=== PATIENT | male | born 1970 | race Caucasian/White ===

== ENCOUNTER 2019-09-02 19:20 | Inpatient (IN) | payer OTHER ==
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
[2019-09-02] MEDS ORDERED: DICYCLOMINE HCL 10 MG CAPSULE PO PRN (19:50)
[2019-09-02] MEDS ORDERED: MENTHOL/PHENOL 1 EACH UD MM PRN (19:50)
[2019-09-02] MEDS ORDERED: NICOTINE POLACRILEX 2 MG GUM BUC PRN (19:50)
[2019-09-02] MEDS ORDERED: BISMUTH SUBSALICYLATE 524 MG/30 ML UD PO PRN (19:50)
[2019-09-02] MEDS ORDERED: MAGNESIUM CITRATE 300 ML BOTTLE PO PRN (19:50)
[2019-09-02] MEDS ORDERED: IBUPROFEN 400 MG TABLET (FP) PO PRN (19:50)
[2019-09-02] MEDS ORDERED: MELATONIN 5 MG TABLETS PO PRN (19:50)
[2019-09-02] MEDS ORDERED: MAG HYDROX/AL HYDROX/SIMETH 30 ML UNIT-DOSE CUP PO PRN (19:50)
[2019-09-02] MEDS ORDERED: P-EPHED 60MG/TRIPROLIDI 2.5MG TABLET PO PRN (19:50)
[2019-09-02] MEDS ORDERED: guaiFENesin 200 MG/10 ML 10 ML UNIT-DOSE CUPS PO PRN (19:50)
[2019-09-02] MEDS ORDERED: METHOCARBAMOL 500 MG TABLET PO PRN (19:50)
[2019-09-02] MEDS ORDERED: ACETAMINOPHEN 325 MG TABLET (FP) PO PRN ×2 (19:50)
[2019-09-02] MEDS ORDERED: hydrOXYzine PAMOATE 25 MG CAPSULE (FP) PO PRN (19:50)
[2019-09-02] MEDS ORDERED: MAGNESIUM HYDROX 2400MG/30ML ORAL SUSPENSION 30 ML CUP PO PRN (19:50)
[2019-09-02] MEDS ORDERED: chlordiazePOXIDE HCL 10 MG CAPSULE PO PRN (19:50)
[2019-09-02] MEDS ORDERED: ONDANSETRON *ODT* 4 MG TABLET SL PRN (19:50)
[2019-09-02 20:17] VITALS: BMI 25.7
[2019-09-02] MEDS: THIAMINE HCL 100 MG TABLET (FP) PO SCH (21:20)
[2019-09-02] MEDS: chlordiazePOXIDE HCL 25 MG CAPSULE PO SCH (21:20)
[2019-09-03] MEDS: chlordiazePOXIDE HCL 25 MG CAPSULE PO SCH ×3 (06:07→22:22)
--- NOTE | 2019-09-03 09:08 | PN ---
S CIWA - CIWA Score Nausea/Vomitin-Mild Nausea/No Vomiting Muscle Tremors: 3 Anxiety: 2 Agitation: 2 Paroxysmal Sweats: 2 Orientation: 0-Oriented Tacttile Disturbances: 0-None Auditory Disturbances: 0-None Visual Disturbances: 0-None Headache: 2-Mild CIWA-Ar Total Score: 12 [facility] Progress Note (SOAP) Subjective: pt admitted yesterday for alcohol detox, without complaints O: Vital Signs - 24 hr 09/02/19 09/02/19 09/03/19 20:07 21:10 01:27 Temperature 98 F 98.6 F Pulse Rate 100 H 93 H Respiratory 18 18 20 Rate Blood Pressure 119/71 109/74 09/03/19 09/03/19 03:30 06:06 Temperature 97.7 F Pulse Rate 79 Respiratory 18 18 Rate Blood Pressure 131/78 a/p: alcohol use disorder: continue detox protocol labs pending
[2019-09-03 10:02] LABS: HEMATOCRIT 40.3 % (35.4-49); HEMOGLOBIN 13.7 GM/dL (11.7-16.9); MCH 31.4 pg (25.7-33.7); MCHC 33.9 g/dl (32.0-35.9); MEAN CELL VOLUME 92.4 fl (80-96); MEAN PLT VOLUME 8.7 fl (7.5-11.1); PLATELET COUNT 229 K/MM3 (134-434); RBC 4.36 M/mm3 (4.00-5.60); RDW 13.3 % (11.9-15.9)
[2019-09-03] MEDS: PRENATAL VITAMINS W/ FOLIC ACID TABLET (FP) PO SCH (10:26)
[2019-09-03] MEDS: NICOTINE 14 MG/24 HOURS TOPICAL PATCH TD SCH (10:26)
[2019-09-03 10:31] LABS: ALBUMIN 3.3 g/dl (3.4-5.0); BILIRUBIN,TOTAL 0.4 mg/dL (0.2-1); BLOOD UREA NITROGEN 17.7 mg/dL (7-18); CALCIUM 8.9 mg/dL (8.5-10.1); CREATININE 0.8 mg/dL (0.55-1.3); TOT PROT 6.1 g/dl (6.4-8.2)
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
--- NOTE | 2019-09-03 11:55 | EKG ---
Test Reason : Blood Pressure : / mmHG Vent. Rate : 084 BPM Atrial Rate : 084 BPM P-R Int : 168 ms QRS Dur : 082 ms QT Int : 384 ms P-R-T Axes : 046 037 030 degrees QTc Int : 453 ms NORMAL SINUS RHYTHM NORMAL ECG NO PREVIOUS ECGS AVAILABLE Confirmed by EDER QUINTANILLA MD ([id number]) on 09/03/2019 11:55:25 AM Referred By: Confirmed By:EDER QUINTANILLA MD
[2019-09-03] MEDS: MELATONIN 5 MG TABLETS PO PRN (22:22)
[2019-09-03] MEDS: THIAMINE HCL 100 MG TABLET (FP) PO SCH (22:22)
[2019-09-04] MEDS: chlordiazePOXIDE 5 MG CAPSULE PO SCH ×3 (05:58→22:15)
[2019-09-04] MEDS: PRENATAL VITAMINS W/ FOLIC ACID TABLET (FP) PO SCH (10:03)
[2019-09-04] MEDS: NICOTINE 14 MG/24 HOURS TOPICAL PATCH TD SCH (10:03)
--- NOTE | 2019-09-04 13:15 | PN ---
S CIWA - CIWA Score Nausea/Vomitin-No Nausea/No Vomiting Muscle Tremors: 1-None Visible, but B[place]te Anxiety: 1-Mildly Anxious Agitation: 0-Normal Activity Paroxysmal Sweats: 2 Orientation: 0-Oriented Tacttile Disturbances: 1-Very Mild Itch/Numbness Auditory Disturbances: 0-None Visual Disturbances: 0-None Headache: 0-None Present CIWA-Ar Total Score: 5 BHS Progress Note (SOAP) Subjective: Pt feeling bettter, interrupted sleep, sweats , Objective: 09/04/19 13:14 Vital Signs Temperature 98.3 F 09/04/19 09:07 Pulse Rate 75 09/04/19 09:07 Respiratory Rate 19 09/04/19 09:07 Blood Pressure 114/66 09/04/19 09:07 O2 Sat by Pulse Oximetry (%) Laboratory Tests 09/03/19 09/03/19 09/03/19 07:40 07:40 07:40 WBC 5.0 RBC 4.36 Hgb 13.7 Hct 40.3 MCV 92.4 MCH 31.4 MCHC 33.9 RDW 13.3 Plt Count 229 MPV 8.7 Sodium 142 Potassium 4.0 Chloride 108 H Carbon Dioxide 29 Anion Gap 5 L BUN 17.7 Creatinine 0.8 Est GFR (CKD-EPI)AfAm 122.43 Est GFR (CKD-EPI)NonAf 105.63 Random Glucose 95 Calcium 8.9 Total Bilirubin 0.4 AST 24 ALT 78 H Alkaline Phosphatase 66 Total Protein 6.1 L Albumin 3.3 L RPR Titer Nonreactive pt aox3 in nad ,, ambulting Assessment: 09/04/19 13:14 withdrawal sx's Plan: cont. detox increase fluids
[2019-09-04] MEDS: THIAMINE HCL 100 MG TABLET (FP) PO SCH (22:15)
[2019-09-05] MEDS ORDERED: chlordiazePOXIDE HCL 10 MG CAPSULE PO PRN
[2019-09-05] MEDS: MELATONIN 5 MG TABLETS PO PRN (00:43)
[2019-09-05] MEDS: chlordiazePOXIDE HCL 10 MG CAPSULE PO SCH ×3 (06:12→22:21)
[2019-09-05] MEDS: NICOTINE 14 MG/24 HOURS TOPICAL PATCH TD SCH (10:43)
[2019-09-05] MEDS: PRENATAL VITAMINS W/ FOLIC ACID TABLET (FP) PO SCH (10:43)
[2019-09-05] MEDS ORDERED: traZODone HCL 50 MG TABLET (FP) PO PRN (10:55)
--- NOTE | 2019-09-05 16:44 | PN ---
S CIWA - CIWA Score Nausea/Vomitin-No Nausea/No Vomiting Muscle Tremors: None Anxiety: 3 Agitation: 1-Slight > Activity Paroxysmal Sweats: No Perspiration Orientation: 0-Oriented Tacttile Disturbances: 0-None Auditory Disturbances: 0-None Visual Disturbances: 2-Mild Sensitivity Headache: 0-None Present CIWA-Ar Total Score: 6 BHS Progress Note (SOAP) Subjective: Insomnia, Anxious. Objective: PATIENT A & O X 3, OBSERVED AMBULATING ON DETOX UNIT UNASSISTED. IN NO ACUTE DISTRESS. 09/05/19 16:43 Vital Signs Temperature 98.1 F 09/05/19 10:33 Pulse Rate 68 09/05/19 10:33 Respiratory Rate 16 09/05/19 10:33 Blood Pressure 114/75 09/05/19 10:33 O2 Sat by Pulse Oximetry (%) Laboratory Tests 09/03/19 09/03/19 09/03/19 07:40 07:40 07:40 WBC 5.0 RBC 4.36 Hgb 13.7 Hct 40.3 MCV 92.4 MCH 31.4 MCHC 33.9 RDW 13.3 Plt Count 229 MPV 8.7 Sodium 142 Potassium 4.0 Chloride 108 H Carbon Dioxide 29 Anion Gap 5 L BUN 17.7 Creatinine 0.8 Est GFR (CKD-EPI)AfAm 122.43 Est GFR (CKD-EPI)NonAf 105.63 Random Glucose 95 Calcium 8.9 Total Bilirubin 0.4 AST 24 ALT 78 H Alkaline Phosphatase 66 Total Protein 6.1 L Albumin 3.3 L RPR Titer Nonreactive LABS NOTED. Assessment: 09/05/19 16:43 WITHDRAWAL SYMPTOMS. ELEVATED ALT LEVEL. Plan: CONTINUE DETOX. TRAZODONE, 50 MG ORAL PRN HS ORDERED FOR RELIEF OF INSOMNIA.
[2019-09-05] MEDS ORDERED: NITROGLYCERIN SUBLINGUAL 1/150 0.4 MG TAB SL ONE (21:01)
[2019-09-05 21:35] VITALS: PULSE 67; TEMP 97.9
[2019-09-05 21:36] VITALS: BP 123/85
--- NOTE | 2019-09-05 21:53 | PN ---
[facility] Progress Note Note: ASKED TO SEE PATIENT FOR C/O C.P. . CLIENT REPORTS WORSENING C.P. 10/10 FOR ABOUT THE LAST HOUR. NOW RADIATING UP HIS LEFT NECK AND ACROSS HIS JAW. GIVEN MYLANTA W/O RELIEF. REPORTS SOB, C.P., SWEATS, CHILLS, CLIENT SEEN SEATED IN CHAIR/ A/O X3 MODERATE DISTRESS HOLDING HIS CHEST, RESTLESS CLIENT WAS ABLE TO AMBULATE TO HIS ROOM UNASSISTED. EKG SHOWS LATERAL ISCHEMIA VIA ELECTRONIC INTERPRETATION VS NL EKG ON ADMISSION ON 09/02/2019. Vital Signs - 8 hr 09/05/19 09/05/19 09/05/19 16:34 20:50 21:09 Temperature 99.1 F 99.1 F 97.9 F Pulse Rate 66 59 L 65 Respiratory 18 16 18 Rate Blood Pressure 138/91 127/76 123/85 09/05/19 21:29 Temperature 97.9 F Pulse Rate 67 Respiratory 16 Rate Blood Pressure Laboratory Tests 09/03/19 09/03/19 09/03/19 07:40 07:40 07:40 WBC 5.0 RBC 4.36 Hgb 13.7 Hct 40.3 MCV 92.4 MCH 31.4 MCHC 33.9 RDW 13.3 Plt Count 229 MPV 8.7 Sodium 142 Potassium 4.0 Chloride 108 H Carbon Dioxide 29 Anion Gap 5 L BUN 17.7 Creatinine 0.8 Est GFR (CKD-EPI)AfAm 122.43 Est GFR (CKD-EPI)NonAf 105.63 Random Glucose 95 Calcium 8.9 Total Bilirubin 0.4 AST 24 ALT 78 H Alkaline Phosphatase 66 Total Protein 6.1 L Albumin 3.3 L RPR Titer Nonreactive NITRO 0.4MG PO SL X1 02 2L NC 911 INITIATED CLIENT WITH MINIMAL RELIEF WITH NITRO TRANSFERRED TO [facility]- ER REPORT GIVEN TO DR. WERNER- 49 Y.O. MALE WITH ALCOHOL DEPENDENCE ADMITTED ON 09/02/2019 FOR ALCOHOL DETOX. HE REPORTS COCAINE AND CANNABIS ABUSE WELL C/W UTOX. C/O C.P FOR APPROX 1 HOUR PRIOR TO THIS PROVIDER EVALUATING CLIENT FOR UNRELIEVED SX'S AFTER MYLANTA. NOW WITH ABN EKG AND UNRELIEVED C.P. AFTER NITRO. PMHX OA, GERD. TRANSFERRED TO [facility] FOR EVAL
[2019-09-05] MEDS: THIAMINE HCL 100 MG TABLET (FP) PO SCH (22:21)
[2019-09-06] MEDS ORDERED: chlordiazePOXIDE HCL 10 MG CAPSULE PO ONE (05:00)
== END 2019-09-06 05:17 | disposition short-term general hospital (02) | DRG 774 ==
LOC: YASAS 19:20 → Y6N 20:27
PROVIDERS: ADMIT Allergy & Immunology; ATTEND Allergy & Immunology
PROC: HZ2ZZZZ Detoxification Services for Substance Abuse Treatment (ICD-10-PCS; principal; 2019-09-02)
DX: F10.230 Alcohol dependence with withdrawal, uncomplicated (principal); F14.20 Cocaine dependence, uncomplicated; F12.20 Cannabis dependence, uncomplicated; F17.210 Nicotine dependence, cigarettes, uncomplicated; F19.282 Other psychoactive substance dependence with psychoactive substance-induced sleep disorder; R07.9 Chest pain, unspecified; M79.602 Pain in left arm; Z59.0 Homelessness
CPT/HCPCS: 36415; 80053; 85027; 86593; 93005; 93010

== ENCOUNTER 2019-09-05 21:39 | Observation (INO) | payer OTHER ==
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
[2019-09-05] MEDS ORDERED: NITROGLYCERIN SUBLINGUAL 1/150 0.4 MG TAB SL ONE (22:17)
[2019-09-05] MEDS ORDERED: ACETAMINOPHEN 1000 MG/100 ML VIAL (NON FORMULARY) IVPB ONE (22:18)
[2019-09-05] MEDS ORDERED: SODIUM CHLORIDE 0.9% 500 ML INFUS.BAG IV ONE (22:18)
[2019-09-05] MEDS ORDERED: ACETAMINOPHEN INJECTION 100 ML IVPB ONE (22:22)
[2019-09-05 22:29] LABS: BASO % 0.5 % (0-2.0); EOS % 0.8 % (0-4.5); HEMATOCRIT 41.8 % (35.4-49); HEMOGLOBIN 14.1 GM/dL (11.7-16.9); LYMPH % 17.2 % (8-40); MCH 31.2 pg (25.7-33.7); MCHC 33.8 g/dl (32.0-35.9); MEAN CELL VOLUME 92.3 fl (80-96); MEAN PLT VOLUME 8.4 fl (7.5-11.1); MONO % 6.4 % (3.8-10.2); NEUT % 75.1 % (42.8-82.8); PLATELET COUNT 257 K/MM3 (134-434); RBC 4.53 M/mm3 (4.00-5.60); WHITE BLOOD COUNT 11.6 K/mm3 (4.0-10.0)
[2019-09-05 22:58] LABS: ALBUMIN 3.5 g/dl (3.4-5.0); ALK PHOS 70 U/L (45-117); ANION GAP 4 MMOL/L (8-16); BILIRUBIN,TOTAL 0.2 mg/dL (0.2-1); BLOOD UREA NITROGEN 15.5 mg/dL (7-18); CALCIUM 8.6 mg/dL (8.5-10.1); CHLORIDE 105 mmol/L (98-107); CO2 32 mmol/L (21-32); GLUCOSE,RANDOM 116 mg/dL (74-106); POTASSIUM 3.7 mmol/L (3.5-5.1); SGOT/AST 21 U/L (15-37); SGPT/ALT 65 U/L (13-61); SODIUM 140 mmol/L (136-145); TOT PROT 6.8 g/dl (6.4-8.2)
[2019-09-05] MEDS ORDERED: morphine CARPU-JECT 2 MG/1 ML DISP.SYRIN IVPUSH ONE (23:01)
--- NOTE | 2019-09-05 23:26 | PDOC ---
Documentation entered by Mali Sequeira SCRIBE, acting as scribe for Kristi Brunner DO. Kristi Brunner DO: This documentation has been prepared by the Fabby bravo Xhesika, SCRIBE, under my direction and personally reviewed by me in its entirety. I confirm that the documentation accurately reflects all work, treatment, procedures, and medical decision making performed by me. Attending Attestation - Resident Resident Name: Kit Jones - ED Attending Attestation I have performed the following: I have examined & evaluated the patient, The case was reviewed & discussed with the resident, I agree w/resident's findings & plan - HPI HPI: 09/05/19 22:19 The patient is a 49 year old male with a PMH of polysubstance and alcohol abuse (last used Saturday) who presents to the emergency department [facility] for L sided chest pain described as a squeezing sensation radiating to his neck. The patient denies shortness of breath, headache and dizziness. Denies fever, chills, cough, nausea, vomiting, diarrhea and constipation. Allergies: NKDA - Physicial Exam PE: 09/05/19 22:19 Agree with resident exam. - Medical Decision Making 09/05/19 23:25 49-year-old male sent from rehab for polysubstance abuse now with left-sided and central chest pressure Patient had partial relief with nitroglycerin and IV Tylenol We will add morphine, due to pleuritic component we will CTA to rule out PE as well Pending results will admit for further evaluation and serial troponins
[2019-09-06] MEDS ORDERED: MORPHINE SULFATE 2 MG/ML VIAL ONE (00:04)
--- NOTE | 2019-09-06 01:32 | PN ---
Teaching Attending Note Name of Resident: Autumn Dominguez ATTENDING PHYSICIAN STATEMENT I saw and evaluated the patient. I reviewed the resident's note and discussed the case with the resident. I agree with the resident's findings and plan as documented. SUBJECTIVE: Patient is a 49 year old man with a PMH of Tobacco use and Substance use disorder (alcohol, cocaine, marijuana, last use this past Saturday), presenting today with left sided chest pain that started at rest. Reports that he was talking with his when the chest pain started. Never had an AR or chest pain before. Reports that the chest pain is worse with exertion and improved with nitroglycerin. Describes the pain as squeezing and throbbing like in quality. Reports that the pain radiates up the left side of his neck. No radiation to the back or down his arm. States that the pain has improved since calling EMS and currently resting comfortably in bed. No sick contacts or recent travels. OBJECTIVE: Alert Vital Signs Period Temp Pulse Resp BP Sys/Springer Pulse Ox Last 24 Hr 98.1 F 65 18 112-123/76-88 98 HEENT: No Jaundice, eye redness or discharge, PERRLA, EOMI. Normocephalic, atraumatic. External ears are normal and hearing is grossly intact. No nasal discharge. Neck: Supple, nontender. No palpable adenopathy or thyromegaly. No JVD Chest: Good effort. Clear to auscultation and percussion. Heart: Regular. No S3, rub or murmur Abdomen: Not distended, soft, nontender and no HSM. No rebound or guarding. Normal bowel sounds. Ext: Peripheral pulses intact. No leg edema. Skin: Warm and dry. No petechiae, rash or ecchymosis. Neuro: Alert. Oriented x3. CN 2-12 grossly intact. Sensation grossly intact in all four extremities and DTR are symmetric. Psych: Appropriate mood and affect. Good insight. Home Medications Medication Instructions Recorded Celecoxib [Celebrex -] 200 mg PO DAILY 09/02/19 Abnormal Lab Results 09/05/19 09/05/19 22:15 22:15 WBC 11.6 H Absolute Neuts (auto) 8.7 H Anion Gap 4 L Random Glucose 116 H ALT 65 H ASSESSMENT AND PLAN: 1. Chest pain - Has risk factor of cocaine use for ACS. EKG shows sinus bradycardia at 58/minute and no significant ST-T wave changes. Initial troponin is negative. No acute abnormality on CXR and no PE or dissection on chest CTA. Will admit to telemetry to rule out ACS, get ECHO, fasting lipids and consult Cardiology. Get urinalysis. Will continue comprehensive care for all of patient s comorbid conditions. 2. Tobacco Use Counseled on risks associated with tobacco use. We will provide patient all the necessary assistance to facilitate smoking cessation and prescribe Nicotine patch. 3. Polysubstance/Alcohol abuse - Monitor cloely for drug withdrawal. Implement [facility] alcohol withdrawal protocol and do neurochecks. Implement seizure, fall and aspiration precautions. Treat with IV Banana bag, thiamine and folic acid. Monitor and replete electrolytes (Ca,Mg,K,P). Counseled patient about abstaining from alcohol. Will consult communicable disease specialist and refer to alcohol detox upon discharge. 4. Hypertension - Restart suitable outpatient antihypertensive drugs when clinically appropriate. Revise regimen to ensure [id number] excellent BP control and director of counseling patient on the injurious effects of uncontrolled hypertension. Nonpharmacologic measures to control hypertension like weight loss , salt restriction and exercise discussed. Importance of adherence to treatment regimen and attainment of normotension emphasized. 5. DVT prophylaxis - Lovenox 40 mg SQ q 24 hours. 6. Advance directives - Full code
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
[2019-09-06] MEDS ORDERED: FOLIC ACID INJECTION - 1 MG, THIAMINE HCL 100 MG, MULTIVIT INJECTION ADULT 10 ML in SOD... IVPB ONE (03:00)
[2019-09-06 06:55] LABS: BASO % 0.5 % (0-2.0); EOS % 0.5 % (0-4.5); HEMATOCRIT 38.1 % (35.4-49); HEMOGLOBIN 13.1 GM/dL (11.7-16.9); LYMPH % 27.1 % (8-40); MCH 31.6 pg (25.7-33.7); MCHC 34.4 g/dl (32.0-35.9); MEAN CELL VOLUME 91.7 fl (80-96); MEAN PLT VOLUME 8.7 fl (7.5-11.1); MONO % 11.1 % (3.8-10.2); NEUT % 60.8 % (42.8-82.8); PLATELET COUNT 237 K/MM3 (134-434); RBC 4.16 M/mm3 (4.00-5.60)
[2019-09-06 07:49] LABS: ALBUMIN 3.2 g/dl (3.4-5.0); ALK PHOS 66 U/L (45-117); ANION GAP 5 MMOL/L (8-16); BILIRUBIN,TOTAL 0.3 mg/dL (0.2-1); BLOOD UREA NITROGEN 11.5 mg/dL (7-18); CALCIUM 8.5 mg/dL (8.5-10.1); CHLORIDE 106 mmol/L (98-107); CHOLESTEROL 194 mg/dL (50-200); CO2 29 mmol/L (21-32); CREATININE 0.7 mg/dL (0.55-1.3); GLUCOSE,RANDOM 96 mg/dL (74-106); HDL CHOLESTEROL 60 mg/dL (40-60); LDL CHOLESTEROL (ONLY SJRH) 112 mg/dL (5-100); MAGNESIUM 2.2 mg/dL (1.8-2.4); PHOSPHOROUS 3.4 mg/dL (2.5-4.9); POTASSIUM 4.2 mmol/L (3.5-5.1); SGOT/AST 16 U/L (15-37); SGPT/ALT 53 U/L (13-61); SODIUM 140 mmol/L (136-145); TRIGLYCERIDES 97 mg/dL (0-150)
[2019-09-06] MEDS ORDERED: PT OWN MED DRAWER 7, Y5N ONE (10:00)
[2019-09-06] MEDS: ENOXAPARIN NA (PORCINE) 40 MG/0.4 ML DISP.SYRIN SQ SCH (10:22)
[2019-09-06] MEDS: THIAMINE HCL 100 MG TABLET (FP) PO SCH (10:22)
[2019-09-06] MEDS: FOLIC ACID 1 MG TABLET (FP) PO SCH (10:22)
[2019-09-06] MEDS: ASPIRIN 81 MG CHEWABLE TABLETS PO SCH (10:22)
[2019-09-06 16:34] VITALS: BMI 27.1
--- NOTE | 2019-09-06 16:39 | PN ---
Progress Note (short form) - Note Progress Note: SUBJECTIVE: Reports anterior chest pain without cough/sputum/hemoptysis. No fever/chills. OBJECTIVE: Afebrile, Hemodynamically Stable. Last Vital Signs Temp Pulse Resp BP Pulse Ox 98.3 F 79 18 133/90 96 09/06/19 03:20 09/06/19 14:00 09/06/19 14:00 09/06/19 14:00 09/06/19 14:00 HEENT - Atraumatic, Normocephalic. Heart - S1, S2, RRR Lungs - clear to auscultation Abdomen - soft, non-tender. Bowel Sounds normal. Extremities - no edema, no calf tenderness. Neuro - AAO x 3. Tone/Power normal all extremities. Laboratory Results - last 24 hr 09/05/19 09/05/19 09/06/19 22:15 22:15 05:45 WBC 11.6 H 8.0 RBC 4.53 4.16 Hgb 14.1 13.1 Hct 41.8 38.1 MCV 92.3 91.7 MCH 31.2 31.6 MCHC 33.8 34.4 RDW 13.0 13.0 Plt Count 257 237 MPV 8.4 8.7 Absolute Neuts (auto) 8.7 H 4.9 Neutrophils % 75.1 60.8 Lymphocytes % 17.2 27.1 D Monocytes % 6.4 11.1 H Eosinophils % 0.8 0.5 Basophils % 0.5 0.5 Nucleated RBC % 0 0 Sodium 140 Potassium 3.7 Chloride 105 Carbon Dioxide 32 Anion Gap 4 L BUN 15.5 Creatinine 1.0 Est GFR (CKD-EPI)AfAm 102.69 Est GFR (CKD-EPI)NonAf 88.61 Random Glucose 116 H Calcium 8.6 Phosphorus Magnesium Total Bilirubin 0.2 AST 21 ALT 65 H Alkaline Phosphatase 70 Creatine Kinase 59 Troponin I < 0.02 Total Protein 6.8 Albumin 3.5 Triglycerides Cholesterol Total LDL Cholesterol HDL Cholesterol 09/06/19 05:45 WBC RBC Hgb Hct MCV MCH MCHC RDW Plt Count MPV Absolute Neuts (auto) Neutrophils % Lymphocytes % Monocytes % Eosinophils % Basophils % Nucleated RBC % Sodium 140 Potassium 4.2 Chloride 106 Carbon Dioxide 29 Anion Gap 5 L BUN 11.5 Creatinine 0.7 Est GFR (CKD-EPI)AfAm 129.34 Est GFR (CKD-EPI)NonAf 111.59 Random Glucose 96 Calcium 8.5 Phosphorus 3.4 Magnesium 2.2 Total Bilirubin 0.3 AST 16 ALT 53 Alkaline Phosphatase 66 Creatine Kinase Troponin I < 0.02 Total Protein 6.0 L Albumin 3.2 L Triglycerides 97 Cholesterol 194 Total LDL Cholesterol 112 H HDL Cholesterol 60 Current Medications Generic Name Dose Route Start Last Admin Trade Name Freq PRN Reason Stop Dose Admin Aspirin 81 mg 09/06/19 10:00 09/06/19 10:22 Asa - PO 81 mg DAILY ZARA Administration Enoxaparin Sodium 40 mg 09/06/19 10:00 09/06/19 10:22 Lovenox - SQ 40 mg DAILY ZARA Administration Folic Acid 1 mg 09/06/19 10:00 09/06/19 10:22 Folic Acid - PO 1 mg DAILY ZARA Administration Thiamine HCl 100 mg 09/06/19 10:00 09/06/19 10:22 Vitamin B1 - PO 100 mg DAILY ZARA Administration Home Medications Medication Instructions Recorded Celecoxib [Celebrex -] 200 mg PO DAILY 09/02/19 Alprazolam [Xanax] 2 mg PO DAILY 09/06/19 Hydrocodone/Acetaminophen [Vicodin 1 each PO PRN 09/06/19 Es 7.5-300 mg Tablet] Zolpidem Tartrate [Ambien] 5 mg PO PRN 09/06/19 ASSESSMENT/PLAN: 49 year old male with history of Polysubstance Abuse (cocaine/alcohol/MJ), active smoker, presents to the ED with complaints of substernal anterior chest pain, radiates to L neck/jaw, worse on positional changes, not related to exertion. Pain developed while he was at [facility] for alcohol detox which he completed. Last cocaine use 4 days ago. CTA Chest - no PE, moderate hiatal hernia 1. Atypical Chest Pain ?cocaine related vasospasm ?underlying CAD TropI neg x 2. ECG - Sinus Cornelio, no acute changes. Echo and Stress test ordered. Cardiology consulted. 2. Polysubstance Abuse (Cocaine/MJ/Alcohol) No evidence of withdrawals MVI, Thiamine, Folic Acid. DVT Px - Lovenox SQ Visit type - Emergency Visit Emergency Visit: Yes ED Registration Date: 09/06/19 Care time: The patient presented to the Emergency Department on the above date and was hospitalized for further evaluation of their emergent condition. - New Patient This patient is new to me today: Yes Date on this admission: 09/06/19 - Critical Care Critical Care patient: No - Discharge Referral Referred to [facility] No
[2019-09-06] MEDS: MULTIVITAMINS (DAILY MVI) TABLET (FP) PO SCH (17:03)
[2019-09-06] MEDS ORDERED: ACETAMINOPHEN 325 MG TABLET (FP) PO PRN (17:05)
[2019-09-06] MEDS: ACETAMINOPHEN 325 MG TABLET (FP) PO PRN (18:38)
[2019-09-06 20:01] LABS: COCAINE, UR NEGATIVE ng/ml (CUTOFF=300); METHADONE, UR NEGATIVE ng/ml (CUTOFF=300); OPIATES, URI NEGATIVE ng/ml (CUTOFF=300); PHENCYCLIDINE,URINE NEGATIVE ng/ml (CUTOFF=25); URINE AMPHETAMINES NEGATIVE ng/ml (CUTOFF=500); URINE BARBITURATES NEGATIVE ng/ml (CUTOFF=200)
[2019-09-06 20:03] LABS: URINE BENZODIAZEPINES POSITIVE ng/ml (CUTOFF=200)
[2019-09-07] MEDS: ACETAMINOPHEN 325 MG TABLET (FP) PO PRN (00:20)
--- NOTE | 2019-09-07 09:31 | EKG ---
Test Reason : Blood Pressure : / mmHG Vent. Rate : 058 BPM Atrial Rate : 058 BPM P-R Int : 162 ms QRS Dur : 080 ms QT Int : 424 ms P-R-T Axes : 022 013 034 degrees QTc Int : 416 ms SINUS BRADYCARDIA POSSIBLE LEFT ATRIAL ENLARGEMENT LEFT VENTRICULAR HYPERTROPHY CANNOT RULE OUT SEPTAL INFARCT , AGE UNDETERMINED ABNORMAL ECG WHEN COMPARED WITH ECG OF 02-SEP-2019 20:36, MINIMAL CRITERIA FOR SEPTAL INFARCT ARE NOW PRESENT Confirmed by Pablo Quinn ([id number]) on 09/07/2019 9:30:56 AM Referred By: Confirmed By:Pablo Quinn
--- NOTE | 2019-09-07 10:48 | ECHO ---
Name: RODRIGO ARAMBULA Exam:Adult Echocardiogram Study Date: 09/07/2019 09:55 AM Age: 49 yrs Reason For Study: Chest Pain Height: 74 in Weight: 210 lb BSA: 2.2 m2 MMode/2D Measurements & Calculations IVSd: 1.2 cm Ao root diam: 3.4 cm LVIDd: 4.3 cm LA dimension: 3.6 cm LVIDs: 3.0 cm ACS: 2.4 cm LVPWd: 1.2 cm IVSs: 1.4 cm LVPWs: 1.5 cm EDV(Teich): 84.9 ml ESV(Teich): 36.4 ml LVOT diam: 2.2 cm RV S Leonides: 15.7 cm/sec Doppler Measurements & Calculations MV E max leonides: 71.6 cm/sec Ao V2 max: 102.0 cm/sec MV A max leonides: 56.8 cm/sec Ao max P.2 mmHg MV E/A: 1.3 Ao V2 mean: 77.7 cm/sec MV dec time: 0.24 sec Ao mean P.7 mmHg Ao V2 VTI: 21.1 cm FERN(I,D): 3.1 cm2 FERN(V,D): 3.2 cm2 LV V1 max P.1 mmHg MR max leonides: 106.9 cm/sec LV V1 mean P.6 mmHg MR max P.6 mmHg LV V1 max: 87.9 cm/sec LV V1 mean: 55.6 cm/sec LV V1 VTI: 17.6 cm SV(LVOT): 65.8 ml TR max leonides: 184.6 cm/sec TR max P.9 mmHg PA V2 max: 75.0 cm/sec Med Peak E' Leonides: 8.1 cm/sec PA max P.3 mmHg Med E/e': 8.8 Lat Peak E' Leonides: 10.7 cm/sec Lat E/e': 6.7 Procedure Study Quality: Fair. Left Ventricle The left ventricle is normal in size. There is mild concentric left ventricular hypertrophy. The left ventricular ejection fraction is normal. Ejection Fraction = 60-65%. Left Ventricular Filling pattern is normal for age. Right Ventricle The right ventricle is normal size. The right ventricular systolic function is normal. Atria Normal left and right atrial size and function. Mitral Valve The mitral valve is grossly normal. There is no mitral regurgitation noted. Tricuspid Valve The tricuspid valve is not well visualized, but is grossly normal. No tricuspid regurgitation. Aortic Valve The aortic valve is trileaflet. No hemodynamically significant valvular aortic stenosis. No aortic regurgitation is present. Pulmonic Valve The pulmonic valve is not well seen, but is grossly normal. Great Vessels Mild aortic root dilatation. Mildly dilated ascending aorta. Pericardium/Pleura There is no pericardial effusion. Interpretation Summary LV: Shyanne size,mild LVH, nornal function, EF: 55-60% RV: Normal No significant valvular dysfunction Mildly dilated aortic root 4.2 cm and ascending aorta 4.1 cm. Pablo Quinn 09/07/2019 10:48 AM
--- NOTE | 2019-09-07 10:50 | EKG ---
Test Reason : Blood Pressure : / mmHG Vent. Rate : 075 BPM Atrial Rate : 075 BPM P-R Int : 160 ms QRS Dur : 084 ms QT Int : 390 ms P-R-T Axes : 033 035 025 degrees QTc Int : 435 ms NORMAL SINUS RHYTHM NORMAL ECG WHEN COMPARED WITH ECG OF 05-SEP-2019 21:49, MINIMAL CRITERIA FOR SEPTAL INFARCT ARE NO LONGER PRESENT Confirmed by Pablo Quinn ([id number]) on 09/07/2019 10:50:04 AM Referred By: HOLLY COOK DR Confirmed By:Pablo Quinn
[2019-09-07] MEDS: MULTIVITAMINS (DAILY MVI) TABLET (FP) PO SCH (12:22)
[2019-09-07] MEDS: ASPIRIN 81 MG CHEWABLE TABLETS PO SCH (12:22)
[2019-09-07] MEDS: FOLIC ACID 1 MG TABLET (FP) PO SCH (12:22)
[2019-09-07] MEDS: THIAMINE HCL 100 MG TABLET (FP) PO SCH (12:22)
[2019-09-07] MEDS: ENOXAPARIN NA (PORCINE) 40 MG/0.4 ML DISP.SYRIN SQ SCH (12:25)
--- NOTE | 2019-09-07 13:54 | PN ---
Teaching Attending Note Name of Resident: Lucas Skinner ATTENDING PHYSICIAN STATEMENT I saw and evaluated the patient. I reviewed the resident's note and discussed the case with the resident. I agree with the resident's findings and plan as documented. SUBJECTIVE: Some residual anterior chest pain without cough/sputum/hemoptysis. No fever/chills. OBJECTIVE: Afebrile, Hemodynamically Stable. Last Vital Signs Temp Pulse Resp BP Pulse Ox 98.2 F 77 20 133/80 97 09/07/19 05:00 09/07/19 05:00 09/07/19 05:00 09/07/19 05:00 09/06/19 22:25 Heart - S1, S2, RRR Lungs - clear to auscultation Abdomen - soft, non-tender. Bowel Sounds normal. Extremities - no edema, no calf tenderness. Neuro - AAO x 3. Tone/Power normal all extremities. Laboratory Results - last 24 hr 09/06/19 09/06/19 08:23 17:51 Creatine Kinase 38 Troponin I < 0.02 Opiates Screen Negative Methadone Screen Negative Barbiturate Screen Negative Phencyclidine Screen Negative Ur Amphetamines Screen Negative MDMA (Ecstasy) Screen Negative Benzodiazepines Screen Positive A* Cocaine Screen Negative U Marijuana (THC) Screen Positive A* Current Medications Generic Name Dose Route Start Last Admin Trade Name Freq PRN Reason Stop Dose Admin Acetaminophen 650 mg 09/06/19 18:29 09/07/19 00:20 Tylenol - PO 650 mg Q6H PRN Administration PAIN LEVEL 1-5 Aspirin 81 mg 09/06/19 10:00 09/07/19 12:22 Asa - PO 81 mg DAILY ZARA Administration Enoxaparin Sodium 40 mg 09/06/19 10:09/07/19 12:25 Lovenox - SQ Not Given DAILY ZARA Folic Acid 1 mg 09/06/19 10:00 09/07/19 12:22 Folic Acid - PO 1 mg DAILY ZARA Administration Multivitamins/Minerals/Vitamin C 1 tab 09/06/19 16:45 09/07/19 12:22 Tab-A-Vit - PO 1 tab DAILY ZARA Administration Thiamine HCl 100 mg 09/06/19 10:00 09/07/19 12:22 Vitamin B1 - PO 100 mg DAILY ZARA Administration Home Medications Medication Instructions Recorded Celecoxib [Celebrex -] 200 mg PO DAILY 09/02/19 Alprazolam [Xanax] 2 mg PO DAILY 09/06/19 Hydrocodone/Acetaminophen [Vicodin 1 each PO PRN 09/06/19 Es 7.5-300 mg Tablet] Zolpidem Tartrate [Ambien] 5 mg PO PRN 09/06/19 ASSESSMENT/PLAN: 49 year old male with history of Polysubstance Abuse (cocaine/alcohol/MJ), active smoker, presents to the ED with complaints of substernal anterior chest pain, radiates to L neck/jaw, worse on positional changes, not related to exertion. Pain developed while he was at [facility] for alcohol detox which he completed. Last cocaine use 4 days ago. CTA Chest - no PE, moderate hiatal hernia 1. Atypical Chest Pain, likely musculoskeletal TropI neg x 3. ECG - Sinus Cornelio, no acute changes. Echo - normal LV function, dilated aortic root 4.2cm and ascending aorta 4.1cm. Exercise Stress Test negative. Cardiology evaluated - no need for further work- up. For Cardiothoracic Surgery follow up as out-patient with Dr. Cuadra. 2. Polysubstance Abuse (Cocaine/MJ/Alcohol) No evidence of withdrawals MVI, Thiamine, Folic Acid. DVT Px - Lovenox SQ
--- NOTE | 2019-09-07 14:15 | CON.CARD ---
Consult Consult Specialty:: Cardiology Referred by:: Hospitalist Medicine Reason for Consultation:: Chest pain - History of Present Illness Chief Complaint: Chest pain History of Present Illness: Patient is a 49 year old man with a PMH of Tobacco use and Substance use disorder (alcohol, cocaine, marijuana, last use this past Saturday), presented with left-sided pleuritic, non-exertional chest pain that was worse supine and improved sitting up since resolved, he ruled out for DE, underwent unremarkable echo and ETT results pending. He denies associated dyspnea, palpitations, near or true syncope, orthopnea, PND, LE edema or change in exercise capacity. - History Source History Provided By: Patient Limitations to Obtaining History: No Limitations - Alcohol/Substance Use Hx Alcohol Use: Yes - Smoking History Smoking history: Current every day smoker Have you smoked in the past 12 months: Yes Aproximately how many cigarettes per day: 1 Home Medications - Allergies Allergies/Adverse Reactions: Allergies Allergy/AdvReac Type Severity Reaction Status Date / Time No Known Allergies Allergy Verified 09/02/19 19:39 - Home Medications Home Medications: Ambulatory Orders Celecoxib [Celebrex -] 200 mg PO DAILY 09/02/19 Alprazolam [Xanax] 2 mg PO DAILY 09/06/19 Hydrocodone/Acetaminophen [Vicodin Es 7.5-300 mg Tablet] 1 each PO PRN 09/06/19 Zolpidem Tartrate [Ambien] 5 mg PO PRN 09/06/19 Sildenafil Citrate [Viagra] 1 tab PO ASDIR 09/07/19 Review of Systems - Review of Systems Cardiovascular: reports: Chest Pain Vital Signs: Vital Signs Temperature 98.2 F 09/07/19 05:00 Pulse Rate 77 09/07/19 05:00 Respiratory Rate 20 09/07/19 05:00 Blood Pressure 133/80 09/07/19 05:00 O2 Sat by Pulse Oximetry (%) 97 09/06/19 22:25 Constitutional: Yes: No Distress, Calm Neck: Yes: Supple Respiratory: Yes: Regular, CTA Bilaterally Gastrointestinal: Yes: Normal Bowel Sounds, Soft Cardiovascular: Yes: Regular Rate and Rhythm JVD: No Carotid Bruit: No Heart Sounds: Yes: S1, S2 Edema: No - Other Data Labs, Other Data: CBC, BMP 09/06/19 05:45 09/06/19 05:45 Troponin, BNP 09/06/19 08:23 Troponin I < 0.02 Troponin, BNP 09/06/19 08:23 Troponin I < 0.02 Imaging - Results Chest X-ray: Report Reviewed (NAD) Cat Scan: Report Reviewed (Chest CTA: No PE, mod sized hiatal hernia) Problem List - Problems (1) Atypical chest pain Code(s): R07.89 - OTHER CHEST PAIN (2) Ascending aorta dilation Code(s): I77.810 - THORACIC AORTIC ECTASIA (3) Alcohol dependence with withdrawal, uncomplicated Code(s): F10.230 - ALCOHOL DEPENDENCE WITH WITHDRAWAL, UNCOMPLICATED (4) Cocaine dependence, uncomplicated Code(s): F14.20 - COCAINE DEPENDENCE, UNCOMPLICATED (5) Nicotine dependence Code(s): F17.200 - NICOTINE DEPENDENCE, UNSPECIFIED, UNCOMPLICATED Qualifiers: Nicotine product type: cigarettes Substance use status: uncomplicated Qualified Code(s): F17.210 - Nicotine dependence, cigarettes, uncomplicated Assessment/Plan SB @ 58 LAE, min criteria LVH 09/07/2019 Echo: Normal LV size with mild LVH and normal LVEF 55-60%, normal RV fxn, no valve abnl, mildly dilated aortic root 4.2 cm 1. Atypical chest pain syndrome ruled out for DE and PE, r/o CAD, possible pleurisy 2. Polysubstance abuse (cocaine last 4 days ago /alcohol/MJ) 3. Tobacco abuse 4. Moderate hiatal hernia 5. Mildly dilated aortic root 4.2 cm P:1. F/u stress testing 2. Drug and ETOH abstinence 3. Celebrex 200 qd as needed 4. Thank you for consultative opportunity
--- NOTE | 2019-09-07 14:56 | TRE ---
Protocol Name : SURINDER Max Work Load (METS*10) : 90 Time In Exercise Phase : 00:07:23 Max. Systolic BP : 180 mmHg Max Diastolic BP : 98 mmHg Max Heart Rate : 151 BPM Max Predicted Heart Rate : 172 BPM Attending Physician : DR. ROCK Reason For Termination : Target Heart Rate Achieved Reason for Test : CHEST PAIN Stress Protocol : SURINDER Rest HR : 78 BPM PeakEx METs : 9.0 METS Arrhythmias : No Arrhythmias Resting ECG : Normal Recovery ECG Response (OLD) : Overall Impression : Normal stress test Chest Pain : No Chest Pain HR Response To Exercise : Normal Overall HR Response To Exercise BP Response To Exercise : Resting Hypertension with Appropriate Response Functional Capacity : Normal Diagnosis : Confirmed by Pablo Quinn ([id number]) on 09/07/2019 2:55:40 PM
--- NOTE | 2019-09-07 15:05 | DS ---
Physical Exam: SUBJECTIVE: Patient seen and examined. No acute events noted on tele. Pt cp improving, stress test negative. States he would like to go to rehab and will not use cocaine or alcohol anymore. OBJECTIVE: Vital Signs Period Temp Pulse Resp BP Sys/Springer Pulse Ox Last 24 Hr 97.3 F-98.4 F 67-77 18-22 117-138/75-96 96-97 PHYSICAL EXAM GENERAL: The patient is awake, alert, and fully oriented, in no acute distress. LUNGS: Breath sounds equal, clear to auscultation bilaterally, no wheezes, no crackles, no accessory muscle use. HEART: Regular rate and rhythm, S1, S2 without murmur, rub or gallop. Minimal tenderness to palpation, but worsened when lying down, improved with leaning forward. ABDOMEN: Soft, nontender, nondistended, normoactive bowel sounds, no guarding, no rebound, no hepatosplenomegaly, no masses. EXTREMITIES: 2+ pulses, warm, well-perfused, no edema. LABS Laboratory Results - last 24 hr 09/06/19 09/06/19 08:23 17:51 Creatine Kinase 38 Troponin I < 0.02 Opiates Screen Negative Methadone Screen Negative Barbiturate Screen Negative Phencyclidine Screen Negative Ur Amphetamines Screen Negative MDMA (Ecstasy) Screen Negative Benzodiazepines Screen Positive A* Cocaine Screen Negative U Marijuana (THC) Screen Positive A* HOSPITAL COURSE: Date of Admission:09/06/19 Images: CTA Chest - no PE, moderate hiatal hernia This is a 49 year old male with a history of Polysubstance Abuse (cocaine/ alcohol/MJ), active smoker, presents to the ED with complaints of substernal anterior chest pain, radiates to L neck/jaw, worse on positional changes, not related to exertion. Pain developed while he was at [facility] for alcohol detox which he completed. Last cocaine use saturday. Pt diagnosed with Atypical Chest Pain/?Pericarditis given negative stress test and positional change in symptoms. Pt sent home on celebrex 200 daily prn for pain for ? pericarditis and to follow up with Dr. Cuadra for Echo result- normal LV function, dilated aortic root 4.2cm and ascending aorta 4.1cm. For PSA hx will follow up at [facility] for rehab. Pt started on Folic acid, thiamine. Pt counseled on PSA cessation. Pt told to follow up with cardio, pcp as o/p. Pt given instruction to return to the ED if he has continued or worsening cp. Date of Discharge: 09/07/19 Minutes to complete discharge: 35 Discharge Summary Problems reviewed: Yes Reason For Visit: CHEST PAIN Current Active Problems Ascending aorta dilation (Acute) Atypical chest pain (Acute) Chest pain (Acute) Condition: Stable - Instructions Diet, Activity, Other Instructions: You were admitted for having chest pain likely due to your recent use of cocaine. You were monitored on our cardiac monitoring fall. You were seen and evaluated by our cardiology team (Dr. Ash) who after various imaging studies ( stress test) show you have not suffered any damage to your heart. However, if you continue using cocaine or alcohol you are at risk of damaging your heart. You should follow up with cardiology after you leave here if you continue to have chest pain. You may go to rehab for your substance abuse (alcohol, cocaine ) after you leave here if you choose and I would highly recommend that. Follow Up Please follow up with Dr. Cuadra Echo (cardiothoracic surgeon) given your echocardiogram findings of a dilated aortic root ascending aorta (blood vessels in your heart). Please follow up with your primary care doctor. If you do not have one, you may make an appointment at [facility] within 1 week. Please follow up with your plate and frame filter operator (Dr. Ash) after you leave here. Medications We have made the following changes to your medication regimen: Please START Thiamine 100 mg once a day by mouth. Please START Folic 1 mg once a day by mouth. Please START taking a multivitamin once a day by mouth. Please START taking celebrex 200mg by mouth once a day as needed for your chest pain. Please take this on a full stomach as there is an increased risk for stomach ulcer or bleeding when taken on empty stomach. You should continue your home medications as prescribed. You should return to the ER if you have any worsening of your current symptoms or: chest pain, shortness of breath, bowel/bladder complaints, withdrawal symptoms. Referrals: [facility] [Provider Group] - 1 Week King Cuadra MD [Staff Physician] - 2 Weeks Fahad Youngblood DO [Staff Physician] - 1 Week Benoit Ash MD [Staff Physician] - Disposition: LONG-TERM FACILITY - Home Medications Comprehensive Discharge Medication List: Ambulatory Orders Celecoxib [CeleBREX -] 200 mg PO DAILY 09/02/19 Alprazolam [Xanax] 2 mg PO DAILY 09/06/19 Hydrocodone/Acetaminophen [Vicodin Es 7.5-300 mg Tablet] 1 each PO PRN 09/06/19 Zolpidem Tartrate [Ambien] 10 mg PO HS 09/06/19 Folic Acid - 1 mg PO DAILY #30 tablet 09/07/19 Sildenafil Citrate [Viagra] 1 tab PO ASDIR 09/07/19 Thiamine HCl [Vitamin B1 -] 100 mg PO DAILY #30 tablet 09/07/19 This patient is new to me today: Yes Date on this admission: 09/07/19 Emergency Visit: Yes ED Registration Date: 09/06/19 Care time: The patient presented to the Emergency Department on the above date and was hospitalized for further evaluation of their emergent condition. Critical Care patient: No - Discharge Referral Referred to [facility] No ATTENDING PHYSICIAN STATEMENT I saw and evaluated the patient. I reviewed the resident's note and discussed the case with the resident. I agree with the resident's findings and plan as documented. SUBJECTIVE: OBJECTIVE: ASSESSMENT AND PLAN:
[2019-09-07] MEDS ORDERED: CELECOXIB 200 MG CAPSULE PO PRN (15:11)
[2019-09-07 15:43] VITALS: BP 103/64; PULSE 74; TEMP 98.1
== END 2019-09-07 16:23 | disposition other institution (70) ==
LOC: JER 21:39 → JERBED 09-06 01:40 → J4W 09-06 14:33
PROVIDERS: ADMIT Internal Medicine
PROC: 3E033NZ Introduction of Analgesics, Hypnotics, Sedatives into Peripheral Vein, Percutaneous Approach (ICD-10-PCS; principal; 2019-09-06)
PROC: 3E0337Z Introduction of Electrolytic and Water Balance Substance into Peripheral Vein, Percutaneous Approach (ICD-10-PCS; 2019-09-06)
DX: R07.89 Other chest pain (principal); F10.230 Alcohol dependence with withdrawal, uncomplicated; F14.20 Cocaine dependence, uncomplicated; F12.10 Cannabis abuse, uncomplicated; F17.210 Nicotine dependence, cigarettes, uncomplicated; R00.1 Bradycardia, unspecified; I10 Essential (primary) hypertension; I77.810 Thoracic aortic ectasia
CPT/HCPCS: 36415; 71046-TC-FY; 71275-TC; 80053; 80061; 80307; 82550; 83721; 83735; 84100; 84484; 85025; 93005; 93010; 93017; 93018; 93306-TC; 96361; 96374; 96375; 99285-25; G0378; J0131; J7030; Q9967

== ENCOUNTER 2019-09-07 17:32 | Inpatient (IN) | payer OTHER ==
--- NOTE | 2019-09-07 11:56 | CON.CARD ---
Consult Consult Specialty:: Cardiology Referred by:: Hospitalist Medicine Reason for Consultation:: Chest pain - History of Present Illness Chief Complaint: Chest pain History of Present Illness: Patient is a 49 year old man with a PMH of Tobacco use and Substance use disorder (alcohol, cocaine, marijuana, last use this past Saturday), presenting today with left sided chest pain that started at rest. Reports that he was talking with his when the chest pain started. Never had an DC or chest pain before. Reports that the chest pain is worse with exertion and improved with nitroglycerin. Describes the pain as squeezing and throbbing like in quality. Reports that the pain radiates up the left side of his neck. No radiation to the back or down his arm. States that the pain has improved since calling EMS and currently resting comfortably in bed. No sick contacts or recent travels. - History Source History Provided By: Patient Limitations to Obtaining History: No Limitations - Alcohol/Substance Use Hx Alcohol Use: Yes - Smoking History Smoking history: Current every day smoker Have you smoked in the past 12 months: Yes Aproximately how many cigarettes per day: 1 Home Medications - Allergies Allergies/Adverse Reactions: Allergies Allergy/AdvReac Type Severity Reaction Status Date / Time No Known Allergies Allergy Verified 09/02/19 19:39 - Home Medications Home Medications: Ambulatory Orders Celecoxib [Celebrex -] 200 mg PO DAILY 09/02/19 Alprazolam [Xanax] 2 mg PO DAILY 09/06/19 Hydrocodone/Acetaminophen [Vicodin Es 7.5-300 mg Tablet] 1 each PO PRN 09/06/19 Zolpidem Tartrate [Ambien] 5 mg PO PRN 09/06/19 Review of Systems - Review of Systems Cardiovascular: reports: Chest Pain - Other Data SB @ 58 LAE, min criteria LVH Ejection Fraction %: LVEF > or = 40 % Imaging - Results Chest X-ray: Report Reviewed (NAD) Assessment/Plan 09/07/2019 Echo: Normal LV size with mild LVH and normal LVEF 55-60%, normal RV fxn, no valve abnl, mildly dilated aortic root 4.2 cm 1. Chest pain syndrome ruled out for DC and PE, r/o CAD 2. Polysubstance abuse (cocaine last 4 days ago /alcohol/MJ) 3. Tobacco abuse 4. Moderate hiatal hernia P:1. F/u stress testing 2. Drug and ETOH abstinence 3. Trial of calcium channel ashwini 4. Thank you for consultative opportunity
[2019-09-07 18:25] VITALS: BMI 26.6
--- NOTE | 2019-09-07 18:43 | BHS.RME ---
Substance Use & Tx History - Last Treatment Where was last treatment: Rehab (Seeking admission to Rehab.)
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
[2019-09-07] MEDS ORDERED: guaiFENesin 200 MG/10 ML 10 ML UNIT-DOSE CUPS PO PRN (18:58)
[2019-09-07] MEDS ORDERED: ACETAMINOPHEN 325 MG TABLET (FP) PO PRN (18:58)
[2019-09-07] MEDS ORDERED: MAGNESIUM CITRATE 300 ML BOTTLE PO PRN (18:58)
[2019-09-07] MEDS ORDERED: MAGNESIUM HYDROX 2400MG/30ML ORAL SUSPENSION 30 ML CUP PO PRN (18:58)
[2019-09-07] MEDS ORDERED: P-EPHED 60MG/TRIPROLIDI 2.5MG TABLET PO PRN (18:58)
[2019-09-07] MEDS ORDERED: MAG HYDROX/AL HYDROX/SIMETH 30 ML UNIT-DOSE CUP PO PRN (18:58)
[2019-09-07] MEDS ORDERED: NICOTINE POLACRILEX 2 MG GUM BC PRN (18:58)
[2019-09-07] MEDS ORDERED: LOPERAMIDE HCL 2 MG CAPSULE PO PRN (18:58)
[2019-09-07] MEDS: MELATONIN 5 MG TABLETS PO SCH (21:17)
[2019-09-07] MEDS: THIAMINE HCL 100 MG TABLET (FP) PO SCH (21:17)
[2019-09-07] MEDS: hydrOXYzine PAMOATE 25 MG CAPSULE (FP) PO SCH (21:17)
[2019-09-08] MEDS: hydrOXYzine PAMOATE 25 MG CAPSULE (FP) PO SCH ×3 (07:07→14:20)
[2019-09-08] MEDS: NICOTINE 21 MG/24 HOURS TOPICAL PATCH TD SCH (10:21)
[2019-09-08] MEDS: PRENATAL VITAMINS W/ FOLIC ACID TABLET (FP) PO SCH (10:21)
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
[2019-09-08] MEDS: MELATONIN 5 MG TABLETS PO SCH (21:13)
[2019-09-08] MEDS: THIAMINE HCL 100 MG TABLET (FP) PO SCH (21:13)
[2019-09-09] MEDS: PRENATAL VITAMINS W/ FOLIC ACID TABLET (FP) PO SCH (10:02)
[2019-09-09] MEDS: NICOTINE 21 MG/24 HOURS TOPICAL PATCH TD SCH (10:03)
[2019-09-09] MEDS: THIAMINE HCL 100 MG TABLET (FP) PO SCH (21:14)
[2019-09-09] MEDS: MELATONIN 5 MG TABLETS PO SCH (21:14)
[2019-09-10] MEDS: IBUPROFEN 400 MG TABLET (FP) PO PRN ×2 (00:42→17:01)
[2019-09-10] MEDS: SUVOREXANT 10 MG TABLET PO PRN ×2 (00:43→22:35)
[2019-09-10] MEDS: NICOTINE 21 MG/24 HOURS TOPICAL PATCH TD SCH (10:20)
[2019-09-10] MEDS: PRENATAL VITAMINS W/ FOLIC ACID TABLET (FP) PO SCH (10:21)
[2019-09-10] MEDS: MELATONIN 5 MG TABLETS PO SCH (21:11)
[2019-09-10] MEDS: THIAMINE HCL 100 MG TABLET (FP) PO SCH (21:11)
[2019-09-11] MEDS: hydrOXYzine PAMOATE 25 MG CAPSULE (FP) PO PRN ×2 (02:28→23:42)
[2019-09-11] MEDS: PRENATAL VITAMINS W/ FOLIC ACID TABLET (FP) PO SCH (10:16)
[2019-09-11] MEDS: NICOTINE 21 MG/24 HOURS TOPICAL PATCH TD SCH (10:16)
[2019-09-11 18:43] LABS: PH,URINE 8.5 (5.0-8.0); URINE APPEARANCE CLOUDY; URINE BILIRUBIN NEGATIVE (NEGATIVE); URINE COLOR YELLOW; URINE GLUCOSE (UA) NEGATIVE (NEGATIVE); URINE KETONE NEGATIVE (NEGATIVE); URINE LEUK ESTERASE NEGATIVE (NEGATIVE); URINE NITRITE NEGATIVE (NEGATIVE); URINE PROTEIN NEGATIVE (NEGATIVE); URINE UROBILINOGEN 0.2 mg/dL (0.2-1.0)
[2019-09-11] MEDS: THIAMINE HCL 100 MG TABLET (FP) PO SCH (21:47)
[2019-09-11] MEDS: MELATONIN 5 MG TABLETS PO SCH (21:47)
[2019-09-12] MEDS: PRENATAL VITAMINS W/ FOLIC ACID TABLET (FP) PO SCH (09:32)
[2019-09-12] MEDS: NICOTINE 21 MG/24 HOURS TOPICAL PATCH TD SCH (09:32)
[2019-09-12] MEDS: MELATONIN 5 MG TABLETS PO SCH (21:15)
[2019-09-12] MEDS: THIAMINE HCL 100 MG TABLET (FP) PO SCH (21:15)
[2019-09-12] MEDS: hydrOXYzine PAMOATE 25 MG CAPSULE (FP) PO PRN (23:39)
[2019-09-13] MEDS: PRENATAL VITAMINS W/ FOLIC ACID TABLET (FP) PO SCH (10:00)
[2019-09-13] MEDS: NICOTINE 21 MG/24 HOURS TOPICAL PATCH TD SCH (10:00)
[2019-09-13] MEDS: THIAMINE HCL 100 MG TABLET (FP) PO SCH (21:28)
[2019-09-13] MEDS: MELATONIN 5 MG TABLETS PO SCH (21:28)
[2019-09-13] MEDS: hydrOXYzine PAMOATE 25 MG CAPSULE (FP) PO PRN (23:25)
[2019-09-14] MEDS: SUVOREXANT 10 MG TABLET PO PRN ×2 (01:11→21:16)
[2019-09-14] MEDS: PRENATAL VITAMINS W/ FOLIC ACID TABLET (FP) PO SCH (10:06)
[2019-09-14] MEDS: NICOTINE 21 MG/24 HOURS TOPICAL PATCH TD SCH (10:06)
[2019-09-14] MEDS: MELATONIN 5 MG TABLETS PO SCH (21:15)
[2019-09-14] MEDS: THIAMINE HCL 100 MG TABLET (FP) PO SCH (21:15)
[2019-09-14] MEDS ORDERED: SUVOREXANT 10 MG TABLET PO PRN (22:00)
[2019-09-15] MEDS: PRENATAL VITAMINS W/ FOLIC ACID TABLET (FP) PO SCH (10:18)
[2019-09-15] MEDS: NICOTINE 21 MG/24 HOURS TOPICAL PATCH TD SCH (10:18)
[2019-09-15] MEDS: IBUPROFEN 400 MG TABLET (FP) PO PRN (14:22)
[2019-09-15] MEDS: MELATONIN 5 MG TABLETS PO SCH (21:37)
[2019-09-15] MEDS: THIAMINE HCL 100 MG TABLET (FP) PO SCH (21:37)
[2019-09-16] MEDS: hydrOXYzine PAMOATE 25 MG CAPSULE (FP) PO PRN (00:42)
[2019-09-16] MEDS: PRENATAL VITAMINS W/ FOLIC ACID TABLET (FP) PO SCH (10:42)
[2019-09-16] MEDS: NICOTINE 21 MG/24 HOURS TOPICAL PATCH TD SCH (10:42)
[2019-09-16] MEDS: MELATONIN 5 MG TABLETS PO SCH (21:29)
[2019-09-16] MEDS: IBUPROFEN 400 MG TABLET (FP) PO PRN (21:29)
[2019-09-16] MEDS: THIAMINE HCL 100 MG TABLET (FP) PO SCH (21:29)
[2019-09-17] MEDS: PRENATAL VITAMINS W/ FOLIC ACID TABLET (FP) PO SCH (10:33)
[2019-09-17] MEDS: NICOTINE 21 MG/24 HOURS TOPICAL PATCH TD SCH (10:33)
[2019-09-17] MEDS: THIAMINE HCL 100 MG TABLET (FP) PO SCH (21:46)
[2019-09-17] MEDS: MELATONIN 5 MG TABLETS PO SCH (21:46)
[2019-09-17] MEDS ORDERED: SUVOREXANT 10 MG TABLET PO PRN (22:00)
[2019-09-18] MEDS: PRENATAL VITAMINS W/ FOLIC ACID TABLET (FP) PO SCH (10:35)
[2019-09-18] MEDS: NICOTINE 21 MG/24 HOURS TOPICAL PATCH TD SCH (10:36)
[2019-09-18] MEDS: MELATONIN 5 MG TABLETS PO SCH (21:32)
[2019-09-18] MEDS: THIAMINE HCL 100 MG TABLET (FP) PO SCH (21:33)
[2019-09-19] MEDS: PRENATAL VITAMINS W/ FOLIC ACID TABLET (FP) PO SCH (10:29)
[2019-09-19] MEDS: NICOTINE 21 MG/24 HOURS TOPICAL PATCH TD SCH (10:30)
[2019-09-19] MEDS: THIAMINE HCL 100 MG TABLET (FP) PO SCH (21:35)
[2019-09-19] MEDS: MELATONIN 5 MG TABLETS PO SCH (21:35)
[2019-09-20] MEDS: PRENATAL VITAMINS W/ FOLIC ACID TABLET (FP) PO SCH (10:01)
[2019-09-20] MEDS: NICOTINE 21 MG/24 HOURS TOPICAL PATCH TD SCH (10:01)
[2019-09-20] MEDS: THIAMINE HCL 100 MG TABLET (FP) PO SCH (21:28)
[2019-09-20] MEDS: MELATONIN 5 MG TABLETS PO SCH (21:32)
[2019-09-21 07:12] VITALS: BP 110/71; PULSE 75; TEMP 97.6
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
[2019-09-21] MEDS: PRENATAL VITAMINS W/ FOLIC ACID TABLET (FP) PO SCH (09:51)
[2019-09-21] MEDS: NICOTINE 21 MG/24 HOURS TOPICAL PATCH TD SCH (09:51)
== END 2019-09-21 10:50 | disposition home or self-care (01) | DRG 772 ==
LOC: YASAS 17:32 → Y5N 19:23
PROVIDERS: ADMIT Allergy & Immunology; ATTEND Allergy & Immunology
PROC: HZ42ZZZ Group Counseling for Substance Abuse Treatment, Cognitive-Behavioral (ICD-10-PCS; principal; 2019-09-07)
DX: F10.20 Alcohol dependence, uncomplicated (principal); F14.20 Cocaine dependence, uncomplicated; F12.20 Cannabis dependence, uncomplicated; F17.210 Nicotine dependence, cigarettes, uncomplicated; F41.8 Other specified anxiety disorders; F32.9 Major depressive disorder, single episode, unspecified; G47.00 Insomnia, unspecified; M17.11 Unilateral primary osteoarthritis, right knee; R07.89 Other chest pain
CPT/HCPCS: 81003